=== PATIENT | male | born 1980 | race Caucasian/White ===

== ENCOUNTER 2020-03-04 15:55 | Emergency (ER) | payer OTHER ==
[2020-03-04 16:26] LABS: Eosinophil % 2.2 % (0.00-5.0); Eosinophil (Absolute #) 0.22 (0-0.5); Hematocrit 40.3 % (42-50); Hemoglobin 13.5 gm/dl (12.5-18.0); Lymphocyte (Absolute #) 3.04 (1.0-4.6); Lymphocytes % 30.1 % (24.0-44.0); Mean Cell Volume 88.4 fl (78-100); Mean Corpuscular Hemoglobin 29.6 pg (26-32); Mean Corpuscular Hgb Concent. 33.5 g/dl (32-36); Mean Platelet Volume 10.1 fl (7.5-11.0); Monocyte (Absolute #) 0.94 (0.0-1.3); Monocytes % 9.3 % (0.0-12.0); Neutrophil % 57.4 % (36.0-66.0); Platelet Count 357 K/mm3 (150-450); Red Blood Count 4.56 M/mm3 (4.1-5.6); Red Cell Distribution Width 13.4 % (11.5-14.0); White Blood Count 10.1 K/mm3 (4.0-10.5)
--- NOTE | 2020-03-04 16:32 | XRAY ---
Indication: Chest pain and short of breath 3 weeks. Comparison: None Portable apical lordotic chest demonstrates normal heart, lungs, and bony thorax.
[2020-03-04 16:33] LABS: INR 1.07 (0.8-3.0); PROTIME 12.1 SECONDS (8.83-12.87)
[2020-03-04 16:36] LABS: PTT 32.8 SECONDS (24.1-36.1)
[2020-03-04 16:47] LABS: ALBUMIN 4.7 g/dL (3.5-5.0); ALKALINE PHOSPHATASE 67 U/L (38-126); ANION GAP 13.3 MEQ/L (5-15); BLOOD UREA NITROGEN 19 mg/dL (9-20); CHLORIDE 108 mmol/L (98-107); Calcium 9.9 mg/dL (8.4-10.2); Carbon Dioxide 21 mmol/L (22-30); Creatinine 1 0.85 mg/dL (0.66-1.25); EST GLOMERULAR FILTRATION RATE > 60.0 ML/MIN; Glucose 99 mg/dL (74-106); MAGNESIUM 2.3 mg/dL (1.6-2.3); NT PRO BNP 70.3 pg/mL (0-450); SGOT/AST 40 U/L (17-59); SGPT/ALT 51 U/L (0-50); SODIUM 137 mmol/L (137-145); Total Protein 7.3 g/dL (6.3-8.2)
[2020-03-04 16:48] LABS: Potassium 4.9 mmol/L (3.5-5.1)
[2020-03-04 16:58] VITALS: PULSE 80
--- NOTE | 2020-03-04 17:14 | ERPHSYRPT ---
- History of Present Illness Historian: patient Patient Subjective Stated Complaint: Pt states that his right medial chest has been hurting for approx 3 weeks and he had done a telehealth and thought it was plurisy, pt was given prednisone for 5 days but after the medicine was gone he became worse Triage Nursing Assessment: Pt brought to the ER by his , vitals wnl, rates chest pain as 4/10, pulses normal, skin n/w/d, stridor in devan upper lobes, doesn't appear to be in any distress Physician History: 39 yo wm w mid-sternal chest pain x 3 wks. Pain does not radiate and is described as sharp. He has had dyspnea/occ diaphoresis wo N/V. Pt also denies cough/fever and states pain worse w cough/deep breaths. He had a cath 2yrs ago at [facility] which was neg according to pt. Pain worse w cough/deep breaths. He has a h/o HTN/Pre DM's/hyperlipidemia/smoked 2ppd until 3yrs ago. Pt also has a h/o meth abuse in the past. Timing/Duration: other (3 wks) Quality: sharpness Location: substernal, central Chest Pain Radiation: no radiation Severity of Pain-Max: moderate Severity of Pain-Current: moderate Modifying Factors: Improves With: breathing, coughing Associated Symptoms: hurts to breathe, diaphoresis, No nausea, No vomiting, No palpitations, No heartburn, No abdominal pain, No shortness of breath, No cough, No chills, No fever, No fatigue, No weakness, No swelling/lump in chest, No syncope, No rash, No headache, No dizziness, No edema, No back pain Prior Chest Pain/Cardiac Workup: cardiac cath Nitro Today/Relief: no nitro taken today Aspirin Treatment Today: no aspirin today Allergies/Adverse Reactions: No Known Drug Allergies Allergy (Verified 03/04/20 16:08) Home Medications: Amlodipine Besylate 2.5 mg PO DAILY 03/04/20 [History] Atorvastatin Calcium 40 mg PO DAILY 03/04/20 [History] Budesonide/Formoterol Fumarate [Budesonide-Formoterol 80-4.5] 2 inh PO BID 03/04/20 [History] Bupropion HCl [Bupropion Xl] 150 mg PO DAILY 03/04/20 [History] Ezetimibe 10 mg PO DAILY 03/04/20 [History] Fenofibrate Nanocrystallized [Fenofibrate] 48 mg PO BID 03/04/20 [History] Ibuprofen 600 mg PO TID 03/04/20 [History] Sertraline HCl [Zoloft] 100 mg PO DAILY 03/04/20 [History] Travel Risk - International Travel Have you traveled outside of the country in past 3 weeks: No - Coronavirus Screening Are you exhibiting any of the following symptoms?: No Close contact with a COVID-19 positive Pt in past 14-21 Days: No - Review of Systems Constitutional: No Symptoms Eyes: No Symptoms Ears, Nose, & Throat: No Symptoms Respiratory: No Symptoms Abdominal/Gastrointestinal: No Symptoms Genitourinary Symptoms: No Symptoms Musculoskeletal: No Symptoms Skin: No Symptoms Neurological: No Symptoms Psychological: No Symptoms Endocrine: No Symptoms Hematologic/Lymphatic: No Symptoms Immunological/Allergic: No Symptoms - Past Medical History Pertinent Past Medical History: Yes Cardiac History: High Cholesterol, Hypertension Respiratory History: Asthma Endocrine Medical History: Diabetes Type II Psycho-Social History: Anxiety Other Medical History: pericarditis - Past Surgical History Past Surgical History: Yes Cardiac: Cardiac Catheterization Other Surgical History: carpal tunnel surgery, broken toe surgery - Social History Smoking Status: Former smoker Exposure to second hand smoke: No Drug Use: none Patient Lives Alone: No Significant Family History: no pertinent family hx - Nursing Vital Signs Nursing Vital Signs: Initial Vital Signs Temperature 97.9 F 03/04/20 15:56 Pulse Rate 85 03/04/20 15:56 Respiratory Rate 17 03/04/20 15:56 Blood Pressure 134/84 03/04/20 15:56 O2 Sat by Pulse Oximetry 98 03/04/20 15:56 Pain Scale Pain Intensity 2 - Physical Exam General Appearance: no apparent distress Eye Exam: PERRL/EOMI, eyes nml inspection Ears, Nose, Throat Exam: normal ENT inspection, TMs normal, pharynx normal Neck Exam: normal inspection, non-tender, supple, full range of motion, No meningismus, No mass, No Brudzinski, No Kernig's, No carotid bruit Respiratory Exam: normal breath sounds, lungs clear, airway intact, No chest tenderness, No respiratory distress Cardiovascular Exam: regular rate/rhythm, normal heart sounds, normal peripheral pulses, No murmur Gastrointestinal/Abdomen Exam: soft, normal bowel sounds, No tenderness Back Exam: normal inspection, normal range of motion, CVA tenderness, No vertebral tenderness Extremity Exam: normal inspection, normal range of motion Neurologic Exam: alert, oriented x 3, cooperative, substance abuse therapist II-XII nml as tested, normal mood/affect, nml cerebellar function, nml station & gait, sensation nml, No motor deficits, No sensory deficit Skin Exam: normal color, warm, dry, No rash Lymphatic Exam: No adenopathy SpO2 Interpretation: normal SpO2: 97 O2 Delivery: Room Air - Course EKG Interpreted by Me: RATE (NSR Rate80/Normal QT-QTc/Normal ST-T waves) - Radiology Exams Chest X-ray Interpretation: Interpreted by me (NAD) - CT Exams Chest CT Interpretation: Discussed w/radiologist (Nothing acute) Ordered Tests: Active Orders 24 hr Category Date Time Status Counsellors STAT Care 03/04/20 16:10 Completed EKG-ER Only STAT Care 03/04/20 16:10 Completed IV Insertion STAT Care 03/04/20 16:10 Completed CHEST 1 VIEW (PORTABLE) Stat Exams 03/04/20 16:16 Completed CHEST WITH CONTRAST [CT] Stat Exams 03/04/20 17:26 Taken CBC W DIFF Stat Lab 03/04/20 16:15 Completed CMP Stat Lab 03/04/20 16:05 Completed D-DIMER QUANTITATIVE Stat Lab 03/04/20 16:05 Completed MAGNESIUM Stat Lab 03/04/20 16:05 Completed NT PRO BNP Stat Lab 03/04/20 16:05 Completed PROTIME WITH INR Stat Lab 03/04/20 16:05 Completed PTT Stat Lab 03/04/20 16:05 Completed TROPONIN Q3H Lab 03/04/20 16:05 Completed TROPONIN Q3H Lab 03/04/20 18:30 Completed Medication Summary Discontinued Medications Generic Name Dose Route Start Last Admin Trade Name Freq PRN Reason Stop Dose Admin Ketorolac Tromethamine 30 mg 03/04/20 18:27 03/04/20 18:37 Toradol 30 Mg Injection IV 03/04/20 18:28 30 mg STAT ONE Administration Ketorolac Tromethamine Confirm 03/04/20 18:34 Toradol 30 Mg Injection Administered 03/04/20 18:35 Dose 30 mg .ROUTE .[id number] Lab/Rad Data: Laboratory Result Diagrams 03/04/20 16:15 03/04/20 16:05 Laboratory Results 03/04/20 03/04/20 03/04/20 Range/Units 18:30 16:15 16:05 WBC 10.1 (4.0-10.5) K/mm3 RBC 4.56 (4.1-5.6) M/mm3 Hgb 13.5 (12.5-18.0) gm/dl Hct 40.3 L (42-50) % MCV 88.4 (78-100) fl MCH 29.6 (26-32) pg MCHC 33.5 (32-36) g/dl RDW 13.4 (11.5-14.0) % Plt Count 357 (150-450) K/mm3 MPV 10.1 (7.5-11.0) fl Gran % 57.4 (36.0-66.0) % Eos # (Auto) 0.22 (0-0.5) Absolute Lymphs (auto) 3.04 (1.0-4.6) Absolute Monos (auto) 0.94 (0.0-1.3) Lymphocytes % 30.1 (24.0-44.0) % Monocytes % 9.3 (0.0-12.0) % Eosinophils % 2.2 (0.00-5.0) % Basophils % 1.0 (0.0-0.4) % Absolute Granulocytes 5.80 (1.4-6.9) Basophils # 0.10 (0-0.4) PT (8.83-12.87) SECONDS INR (0.8-3.0) APTT (24.1-36.1) SECONDS D-Dimer (215-500) ng/mL Sodium (137-145) mmol/L Potassium (3.5-5.1) mmol/L Chloride (98-107) mmol/L Carbon Dioxide (22-30) mmol/L Anion Gap (5-15) MEQ/L BUN (9-20) mg/dL Creatinine (0.66-1.25) mg/dL Estimated GFR ML/MIN Glucose (74-106) mg/dL Calcium (8.4-10.2) mg/dL Magnesium (1.6-2.3) mg/dL Total Bilirubin (0.2-1.3) mg/dL AST (17-59) U/L ALT (0-50) U/L Alkaline Phosphatase (38-126) U/L Troponin I < 0.012 < 0.012 (0.000-0.034) ng/mL NT-Pro-B Natriuret Pep (0-450) pg/mL Serum Total Protein (6.3-8.2) g/dL Albumin (3.5-5.0) g/dL 03/04/20 03/04/20 Range/Units 16:05 16:05 WBC (4.0-10.5) K/mm3 RBC (4.1-5.6) M/mm3 Hgb (12.5-18.0) gm/dl Hct (42-50) % MCV (78-100) fl MCH (26-32) pg MCHC (32-36) g/dl RDW (11.5-14.0) % Plt Count (150-450) K/mm3 MPV (7.5-11.0) fl Gran % (36.0-66.0) % Eos # (Auto) (0-0.5) Absolute Lymphs (auto) (1.0-4.6) Absolute Monos (auto) (0.0-1.3) Lymphocytes % (24.0-44.0) % Monocytes % (0.0-12.0) % Eosinophils % (0.00-5.0) % Basophils % (0.0-0.4) % Absolute Granulocytes (1.4-6.9) Basophils # (0-0.4) PT 12.1 (8.83-12.87) SECONDS INR 1.07 (0.8-3.0) APTT 32.8 (24.1-36.1) SECONDS D-Dimer 462 (215-500) ng/mL Sodium 137 (137-145) mmol/L Potassium 4.9 (3.5-5.1) mmol/L Chloride 108 H (98-107) mmol/L Carbon Dioxide 21 L (22-30) mmol/L Anion Gap 13.3 (5-15) MEQ/L BUN 19 (9-20) mg/dL Creatinine 0.85 (0.66-1.25) mg/dL Estimated GFR > 60.0 ML/MIN Glucose 99 (74-106) mg/dL Calcium 9.9 (8.4-10.2) mg/dL Magnesium 2.3 (1.6-2.3) mg/dL Total Bilirubin 0.50 (0.2-1.3) mg/dL AST 40 (17-59) U/L ALT 51 H (0-50) U/L Alkaline Phosphatase 67 (38-126) U/L Troponin I (0.000-0.034) ng/mL NT-Pro-B Natriuret Pep 70.3 (0-450) pg/mL Serum Total Protein 7.3 (6.3-8.2) g/dL Albumin 4.7 (3.5-5.0) g/dL - Progress Progress: improved Progress Note: 03/04/20 18:27 Cath Report 04/03/18 wo evidence of CAD 03/04/20 19:29 Pain improved w 30mg IV Toradol. Troponin neg x2/Normal EKG/Normal CT chest/Normal Cath 03/28. Counseled pt/family regarding: lab results, diagnosis, need for follow-up, rad results - Departure Departure Disposition: Home Clinical Impression: Chest pain Condition: Stable Critical Care Time: No Referrals: CAROLE HOSKINS [Primary Care Provider] - Instructions: Chest Pain (DC) Additional Instructions: Toradol as needed for pain Follow up with family MD in 1-2 days Return to ER for increasing pain or shortness of breath Prescriptions: Ketorolac Tromethamine [Toradol] 10 mg PO TID PRN #12 tablet PRN Reason: Pain
[2020-03-04] MEDS ORDERED: TORAdol 30 mg Injection ONE (18:34)
[2020-03-04] MEDS: TORAdol 30 mg Injection IV ONE (18:37)
[2020-03-04 19:41] VITALS: BP 118/82
[2020-03-04 19:45] VITALS: O2SAT 97
--- NOTE | 2020-03-05 08:44 | XRAY ---
Indication: Chest pain and short of breath. Elevated d-dimer. Multiple contiguous axial images obtained through the chest using 100 cc Isovue 370 contrast and PE protocol. Comparison: None There is adequate opacification of the pulmonary arteries to include the lobar and segmental branches. No pulmonary embolus. Heart is not enlarged. Aorta is normal in course and caliber. Small right paratracheal calcified node. No pathologic mediastinal/hilar lymphadenopathy. Lungs are inflated and clear. Bony thorax intact. Limited upper abdomen demonstrates fatty liver. Impression: 1. Negative pulmonary embolus. No acute cardiopulmonary abnormalities. 2. Incidental fatty liver.
== END 2020-03-04 19:48 | disposition home or self-care (01) ==
LOC: ED 15:55
DX: R07.9 Chest pain, unspecified (principal)
CPT/HCPCS: 36000; 36415; 71045; 71260; 80053; 83735; 83880; 84484; 85025; 85379; 85610; 85730; 93005; 93041; 96374; 99284; J1885

== ENCOUNTER 2022-11-03 18:07 | Emergency (ER) | payer OTHER ==
[2022-11-03 19:09] LABS: Absolute Neutrophil Ct (ANC) 4.46 x10^3/uL (1.4-6.9); Basophil (Absolute #) 0.09 x10^3/uL (0-0.4); Eosinophil % 2.7 % (0.00-5.0); Eosinophil (Absolute #) 0.24 x10^3/uL (0-0.5); Hematocrit 42.3 % (42-50); Hemoglobin 14.3 g/dL (12.5-18.0); IMMATURE GRAN # 0.03 x10^3u/L (0.00-0.03); IMMATURE GRAN % 0.3 % (0.00-0.4); Lymphocyte (Absolute #) 3.31 x10^3/uL (1.0-4.6); Lymphocytes % 36.9 % (24.0-44.0); Mean Cell Volume 86.2 fL (78-100); Mean Corpuscular Hemoglobin 29.1 pg (26-32); Mean Corpuscular Hgb Concent. 33.8 g/dL (32-36); Mean Platelet Volume 10.4 fL (7.5-11.0); Monocyte (Absolute #) 0.84 x10^3/uL (0.0-1.3); Monocytes % 9.4 % (0.0-12.0); Neutrophil % 49.7 % (36.0-66.0); Platelet Count 325 x10^3/uL (150-450); Red Blood Count 4.91 x10^6/uL (4.1-5.6); Red Cell Distribution Width 13.2 % (11.5-14.0)
[2022-11-03 19:14] LABS: Appearance Clear (Clear); Bacteria None Seen /HPF (None Seen); Bilirubin Negative (Negative); Blood Negative (Negative); Epithelial Cells None Seen /HPF (None Seen); Glucose, Urine >=1000 mg/dL (Negative); Hyaline Casts NONE SEEN /LPF (0-2); Ketones Negative (Negative); Leukocyte Esterase Negative (Negative); Nitrite Negative (Negative); Ph 5.5 (4.6-8.0); Protein,Urine Dip Negative (Negative); RBC 0-2 /HPF (0-5); Specific Gravity >=1.030 (1.005-1.030); Urobilinogen 0.2 mg/dL (0.2); WBC 0-2 /HPF (0-5)
[2022-11-03 19:21] VITALS: O2SAT 97
[2022-11-03 19:28] LABS: ADD URINE CULTURE? NO (NO)
[2022-11-03 19:32] LABS: ALBUMIN 4.2 g/dL (3.5-5.0); ALKALINE PHOSPHATASE 100 U/L (38-126); ANION GAP 14.9 MEQ/L (5-15); BLOOD UREA NITROGEN 19 mg/dL (9-20); CHLORIDE 100 mmol/L (98-107); Calcium 9.7 mg/dL (8.4-10.2); Carbon Dioxide 26 mmol/L (22-30); Creatinine 1 0.93 mg/dL (0.66-1.25); EST GLOMERULAR FILTRATION RATE > 60.0 ML/MIN; Glucose 383 mg/dL (74-106); Potassium 4.2 mmol/L (3.5-5.1); SGOT/AST 52 U/L (17-59); SGPT/ALT 110 U/L (0-50); SODIUM 136 mmol/L (137-145); Total Protein 7.2 g/dL (6.3-8.2)
[2022-11-03] MEDS ORDERED: Sodium Chloride 0.9% 1000 ML 1,000 ML IV STA (19:38)
[2022-11-03] MEDS ORDERED: Sodium Chloride 0.9% 1000 ML 1,000 ML ONE (19:42)
--- NOTE | 2022-11-03 19:50 | ERPHSYRPT ---
- History of Present Illness Time Seen by Provider: 11/03/22 19:30 Source: patient Exam Limitations: no limitations Patient Subjective Stated Complaint: C/O hyperglycemia. Patient states he has been without his diabetic medication (Victoza) for the past 4 days. Patient is waiting on prior authorization to go through to his new insurance company. Triage Nursing Assessment: Patient ambulated back to ER. He is alert and oriented. No SOB. Skin tone normal. Patient denies changes in urinary frequency or any N/V at this time. CHIVO MG. Accucheck on ER glucometer upon arrival to ER is 384. Physician History: Patient is a 42-year-old male with history of type 2 diabetes on Victoza presents to our ED for hyperglycemia. Patient states that he recently ran out of his Victoza. Patient has been out for approximately 4 to 5 days. Patient checked his glucose at home and states it was 500. He became concerned and came to our ED. Patient is not having any symptoms otherwise. Vitals are stable. No nausea vomiting no diarrhea. No rash. No polydipsia or polyuria at this time. No chest pain or shortness of breath. Patient voices no other complaints or concerns at this time. Portions of this note were created with voice recognition technology. There may be grammatical, spelling, punctuation or sound alike errors Timing/Duration: day(s) (4 to 5 days) Severity: moderate Modifying Factors: Improves With: nothing Associated Symptoms: denies symptoms Allergies/Adverse Reactions: No Known Drug Allergies Allergy (Verified 11/03/22 18:25) Home Medications: Albuterol Sulfate 1 vial NEB TID 11/03/22 [History] Buspirone HCl 1 tab PO BID 11/03/22 [History] Cyclobenzaprine HCl 1 tab PO TID PRN 11/03/22 [History] Ezetimibe 10 mg [Zetia 10 MG] 1 tab PO DAILY 11/03/22 [History] Famotidine [Pepcid] 1 tab PO DAILY 11/03/22 [History] Fluoxetine HCl 20 mg [Prozac 20 MG] 1 cap PO DAILY 11/03/22 [History] Ibuprofen 1 tab PO TID 11/03/22 [History] Metoprolol Tartrate 25 mg [Lopressor 25MG Tab] 1 tab PO BID 11/03/22 [History] Pregabalin [Lyrica 150Mg] 1 cap PO BID 11/03/22 [History] Zolpidem Tartrate 1 tab PO HS 11/03/22 [History] clonazePAM [Clonazepam] 1 tab PO BID PRN 11/03/22 [History] Hx Tetanus, Diphtheria Vaccination/Date Given: Yes Immunizations Up to Date: Yes Travel Risk - International Travel Have you traveled outside of the country in past 3 weeks: No - Coronavirus Screening Are you exhibiting any of the following symptoms?: No Close contact with a COVID-19 positive Pt in past 14-21 Days: No - Vaccine Status Have you recieved a Covid-19 vaccination: Yes Retanner: Site Lock - Vaccination Dates Date of 2cond Vaccination (if applicable): ? - Review of Systems Constitutional: No Symptoms, No Fever, No Chills Eyes: No Symptoms Ears, Nose, & Throat: No Symptoms Respiratory: No Symptoms, No Cough, No Dyspnea Cardiac: No Symptoms, No Chest Pain, No Edema, No Syncope Abdominal/Gastrointestinal: No Symptoms, No Abdominal Pain, No Nausea, No Vomiting, No Diarrhea Genitourinary Symptoms: No Symptoms, No Dysuria Musculoskeletal: No Symptoms, No Back Pain, No Neck Pain Skin: No Symptoms, No Rash Neurological: No Symptoms, No Dizziness, No Focal Weakness, No Sensory Changes Psychological: No Symptoms Endocrine: No Symptoms Hematologic/Lymphatic: No Symptoms Immunological/Allergic: No Symptoms All Other Systems: Reviewed and Negative - Past Medical History Pertinent Past Medical History: Yes Neurological History: No Pertinent History Cardiac History: High Cholesterol, Other Respiratory History: Asthma, Sleep Apnea, Other Endocrine Medical History: Diabetes Type II Musculoskeletal History: Fractures, Other Psycho-Social History: Anxiety, Depression Other Medical History: PMHX: SYNCOPE, ANXIETY, DEPRESSION, - Past Surgical History Past Surgical History: Yes Cardiac: Cardiac Catheterization Other Surgical History: carpal tunnel surgery, broken toe surgery - Social History Smoking Status: Former smoker Exposure to second hand smoke: No Drug Use: none Patient Lives Alone: No Significant Family History: no pertinent family hx - Nursing Vital Signs Nursing Vital Signs: Initial Vital Signs Temperature 97.7 F 11/03/22 18:28 Pulse Rate 88 11/03/22 18:28 Respiratory Rate 18 11/03/22 18:28 Blood Pressure 114/74 11/03/22 18:28 O2 Sat by Pulse Oximetry 96 11/03/22 18:28 Pain Scale Pain Intensity 4 - Physical Exam General Appearance: no apparent distress, alert Eye Exam: PERRL/EOMI, eyes nml inspection Ears, Nose, Throat Exam: normal ENT inspection, TMs normal, pharynx normal, moist mucous membranes Neck Exam: normal inspection, non-tender, supple, full range of motion Respiratory Exam: normal breath sounds, lungs clear, airway intact, No respiratory distress Cardiovascular Exam: regular rate/rhythm, normal heart sounds, normal peripheral pulses Gastrointestinal/Abdomen Exam: soft, normal bowel sounds, No tenderness, No mass Back Exam: normal inspection, normal range of motion, No CVA tenderness, No vertebral tenderness Extremity Exam: normal inspection, normal range of motion, pelvis stable Neurologic Exam: alert, oriented x 3, cooperative, normal mood/affect, nml cerebellar function, nml station & gait, sensation nml, No motor deficits Skin Exam: normal color, warm, dry, No rash Lymphatic Exam: No adenopathy SpO2 Interpretation: normal SpO2: 97 O2 Delivery: Room Air - Course Nursing assessment & vital signs reviewed: Yes Ordered Tests: Active Orders 24 hr Category Date Time Status CBC W DIFF Stat Lab 11/03/22 19:03 Completed CMP Stat Lab 11/03/22 19:03 Completed POCT GLUCOSE Stat Lab 11/03/22 18:22 Completed POCT GLUCOSE Stat Lab 11/03/22 20:53 Completed POCT GLUCOSE Stat Lab 11/03/22 21:38 Completed UA W/RFX UR CULTURE Stat Lab 11/03/22 18:43 Completed Medication Summary Discontinued Medications Generic Name Dose Route Start Last Admin Trade Name Mitch PRN Reason Stop Dose Admin Sodium Chloride 1,000 mls @ 999 mls/hr 11/03/22 19:38 11/03/22 20:49 Sodium Chloride 0.9% 1000 Ml IV 11/03/22 20:38 Infused .Q1H1M STA Infusion Sodium Chloride Confirm 11/03/22 19:42 Sodium Chloride 0.9% 1000 Ml Administered 11/03/22 19:43 Dose 1,000 mls @ ud .ROUTE .STK-MED ONE Lab/Rad Data: Laboratory Result Diagrams 11/03/22 19:03 11/03/22 19:03 Laboratory Results 11/03/22 11/03/22 11/03/22 Range/Units 21:38 20:53 19:03 WBC (4.0-10.5) x10^3/uL RBC (4.1-5.6) x10^6/uL Hgb (12.5-18.0) g/dL Hct (42-50) % MCV (78-100) fL MCH (26-32) pg MCHC (32-36) g/dL RDW (11.5-14.0) % Plt Count (150-450) x10^3/uL MPV (7.5-11.0) fL Gran % (36.0-66.0) % Immature Gran % (Auto) (0.00-0.4) % Nucleat RBC Rel Count (0.00-0.1) % Eos # (Auto) (0-0.5) x10^3/uL Immature Gran # (Auto) (0.00-0.03) x10^3u/L Absolute Lymphs (auto) (1.0-4.6) x10^3/uL Absolute Monos (auto) (0.0-1.3) x10^3/uL Absolute Nucleated RBC (0.00-0.01) x10^3u/L Lymphocytes % (24.0-44.0) % Monocytes % (0.0-12.0) % Eosinophils % (0.00-5.0) % Basophils % (0.0-0.4) % Absolute Granulocytes (1.4-6.9) x10^3/uL Basophils # (0-0.4) x10^3/uL Sodium 136 L (137-145) mmol/L Potassium 4.2 (3.5-5.1) mmol/L Chloride 100 (98-107) mmol/L Carbon Dioxide 26 (22-30) mmol/L Anion Gap 14.9 (5-15) MEQ/L BUN 19 (9-20) mg/dL Creatinine 0.93 (0.66-1.25) mg/dL Estimated GFR > 60.0 ML/MIN Glucose 383 H (74-106) mg/dL POC Glucometer 240 H 272 H (74 to 106) mg/dL Calcium 9.7 (8.4-10.2) mg/dL Total Bilirubin 0.30 (0.2-1.3) mg/dL AST 52 (17-59) U/L ALT 110 H (0-50) U/L Alkaline Phosphatase 100 (38-126) U/L Serum Total Protein 7.2 (6.3-8.2) g/dL Albumin 4.2 (3.5-5.0) g/dL Urine Color (Yellow) Urine Appearance (Clear) Urine pH (4.6-8.0) Ur Specific [place] (1.005-1.030) Urine Protein (Negative) Urine Glucose (UA) (Negative) mg/dL Urine Ketones (Negative) Urine Blood (Negative) Urine Nitrite (Negative) Urine Bilirubin (Negative) Urine Urobilinogen (0.2) mg/dL Ur Leukocyte Esterase (Negative) U Hyaline Cast (Auto) (0-2) /LPF Urine Microscopic RBC (0-5) /HPF Urine Microscopic WBC (0-5) /HPF Ur Epithelial Cells (None Seen) /HPF Urine Bacteria (None Seen) /HPF Urine Culture Reflexed (NO) 11/03/22 11/03/22 11/03/22 Range/Units 19:03 18:43 18:22 WBC 9.0 (4.0-10.5) x10^3/uL RBC 4.91 (4.1-5.6) x10^6/uL Hgb 14.3 (12.5-18.0) g/dL Hct 42.3 (42-50) % MCV 86.2 (78-100) fL MCH 29.1 (26-32) pg MCHC 33.8 (32-36) g/dL RDW 13.2 (11.5-14.0) % Plt Count 325 (150-450) x10^3/uL MPV 10.4 (7.5-11.0) fL Gran % 49.7 (36.0-66.0) % Immature Gran % (Auto) 0.3 (0.00-0.4) % Nucleat RBC Rel Count 0.0 (0.00-0.1) % Eos # (Auto) 0.24 (0-0.5) x10^3/uL Immature Gran # (Auto) 0.03 (0.00-0.03) x10^3u/L Absolute Lymphs (auto) 3.31 (1.0-4.6) x10^3/uL Absolute Monos (auto) 0.84 (0.0-1.3) x10^3/uL Absolute Nucleated RBC 0.00 (0.00-0.01) x10^3u/L Lymphocytes % 36.9 (24.0-44.0) % Monocytes % 9.4 (0.0-12.0) % Eosinophils % 2.7 (0.00-5.0) % Basophils % 1.0 (0.0-0.4) % Absolute Granulocytes 4.46 (1.4-6.9) x10^3/uL Basophils # 0.09 (0-0.4) x10^3/uL Sodium (137-145) mmol/L Potassium (3.5-5.1) mmol/L Chloride (98-107) mmol/L Carbon Dioxide (22-30) mmol/L Anion Gap (5-15) MEQ/L BUN (9-20) mg/dL Creatinine (0.66-1.25) mg/dL Estimated GFR ML/MIN Glucose (74-106) mg/dL POC Glucometer 384 H (74 to 106) mg/dL Calcium (8.4-10.2) mg/dL Total Bilirubin (0.2-1.3) mg/dL AST (17-59) U/L ALT (0-50) U/L Alkaline Phosphatase (38-126) U/L Serum Total Protein (6.3-8.2) g/dL Albumin (3.5-5.0) g/dL Urine Color Yellow (Yellow) Urine Appearance Clear (Clear) Urine pH 5.5 (4.6-8.0) Ur Specific [place] >=1.030 A (1.005-1.030) Urine Protein Negative (Negative) Urine Glucose (UA) >=1000 A (Negative) mg/dL Urine Ketones Negative (Negative) Urine Blood Negative (Negative) Urine Nitrite Negative (Negative) Urine Bilirubin Negative (Negative) Urine Urobilinogen 0.2 (0.2) mg/dL Ur Leukocyte Esterase Negative (Negative) U Hyaline Cast (Auto) NONE SEEN (0-2) /LPF Urine Microscopic RBC 0-2 (0-5) /HPF Urine Microscopic WBC 0-2 (0-5) /HPF Ur Epithelial Cells None Seen (None Seen) /HPF Urine Bacteria None Seen (None Seen) /HPF Urine Culture Reflexed NO (NO) - Progress Progress: improved Progress Note: Patient is a 42-year-old male history of diabetes. Patient has not taken his Victoza in approximately 5 days due to insurance issues. Patient is here because his sugar was 500 at home. Patient otherwise asymptomatic. Laboratory work-up reveals no anion gap acidosis. Patient is only hyperglycemic. Glucosuria observed on urinalysis. Blood sugar 383. Patient received 1 L of normal saline. Sugar decreased down to 383. Sugar down to 240 after liter of n ormal saline. Patient continues to feel well. Patient requesting discharge. Patient states he believes he can get his medication refilled tomorrow. We will discharge patient home at this time. Vital stable. No indication for further work-up. Portions of this note were created with voice recognition technology. There may be grammatical, spelling, punctuation or sound alike errors Complexity of problem addressed is moderate, acute complicated. Patient presented with hyperglycemia however we did not know what was the cause of the hypoglycemia. Although patient had not taken his medication in diabetics a work-up/evaluation is indicated to assure that the elevated blood sugar is not d ue to another cause. Namely infection. Patient has no obvious infection on his work-up. No fever. Patient's hyperglycemia treated successfully with IV fluids No critical care time Complexity of data reviewed and analyzed is moderate. Dr. Das independently reviewed and analyzed laboratory studies. Findings were correlated clinically with physical exam. Work-up reveals a benign appearing hyperglycemia with no anion gap acidosis. These findings correlate with patient's clinical evaluation . They also correlate with patient's symptomology as patient has no active complaints other than the finding of hyperglycemia on his home glucose monitor. Risk of complication and or risk morbidity/mortality of patient management is low. Patient received IV fluids. No other medical management rendered. We will discharge home. Patient agrees to follow-up with his primary care doctor tomorrow. Patient believes he can obtain his Victoza tomorrow. Plan of care established via shared decision making. Vital stable. Time spent to discharge patient is approximately 10 minutes. No social determinants of health present to impede follow-up. Voices no other complaints or concerns at this time. Portions of this note were created with voice recognition technology. There may be grammatical, spelling, punctuation or sound alike errors 11/03/22 22:05 Counseled pt/family regarding: lab results, diagnosis, need for follow-up - Departure Departure Disposition: Home Clinical Impression: Hyperglycemia, Compliance with medication regimen, Glucosuria Condition: Stable Critical Care Time: No Referrals: CAROLE HOSKINS MD [Primary Care Provider] - Follow up/PCP as directed Instructions: High Blood Sugar, Adult (DC)
[2022-11-03 21:46] VITALS: BP 153/99; PULSE 70
== END 2022-11-03 22:10 | disposition home or self-care (01) ==
LOC: ED 18:07
DX: E11.65 Type 2 diabetes mellitus with hyperglycemia (principal); Z91.148 Patient's other noncompliance with medication regimen for other reason; R81 Glycosuria; E78.5 Hyperlipidemia, unspecified; Z79.85 Long-term (current) use of injectable non-insulin antidiabetic drugs; Z79.899 Other long term (current) drug therapy
CPT/HCPCS: 36000; 36415; 80053; 81001; 82947; 85025; 99284